=== PATIENT | female | born 1970 | race American Indian/Alaskan Native ===

== ENCOUNTER 2018-12-15 09:21 | Emergency (ER) | payer SELFPAY ==
[2018-12-15 10:15] LABS: Hematocrit 36.4 % (30.3-42.9); Mean Corpuscular HGB Conc 33 % (30-34); Mean Corpuscular Volume 85 fl (79-97); Platelet Count 353 K/mm3 (140-440); Red Blood Count 4.29 M/mm3 (3.65-5.03); Red Cell Distribution Width 14.2 % (13.2-15.2)
--- NOTE | 2018-12-15 10:21 | Cat Scan Report ---
CT HEAD WITHOUT CONTRAST INDICATION: numbness, paresthesias to extremities. TECHNIQUE: All CT scans at this location are performed using CT dose reduction for ALARA by means of automated e xposure control. COMPARISON: None available. FINDINGS: HEMORRHAGE: None. EXTRA-AXIAL SPACES: Normal in size and morphology for the patient's age. VENTRICULAR SYSTEM: Normal in size and morphology for the patient's age. BRAIN PARENCHYMA: No acute findings. MIDLINE SHIFT OR HERNIATION: None. ORBITS: Normal as visualized. SOFT TISSUES OF HEAD: Normal. CALVARIUM: Normal. VISUALIZED PARANASAL SINUSES AND MASTOID AIR CELLS: Clear. ADDITIONAL FINDINGS: None. IMPRESSION: 1. No acute intracranial abnormality. Signer Name: Tex Yusuf MD Signed: 12/15/2018 10:16 AM Workstation Name: [id number]
[2018-12-15 10:26] LABS: BUN/Creatinine Ratio 18; Blood Urea Nitrogen 14 mg/dL (7-17); Calcium 9.2 mg/dL (8.4-10.2); Hemolysis Index 3
--- NOTE | 2018-12-15 10:40 | Emergency Department Report ---
HPI - General Chief Complaint: Neuro Symptoms/Deficit Time Seen by Provider: 12/15/18 09:38 - HPI HPI: 48-year-old -[place] female presents to the emergency department with complaint of what sounds like paresthesias to the bilateral hands and fingers, except for the thumbs, that has been going on for the past 2 weeks. She says that there is "numbness" but says that she does have sensation to this area. She has full range of motion to the hands and upper extremities. Patient says that she sleeps on her stomach and often she will have her arms and hands underneath her. She will sometimes wake up with this sensation to the hands and fingers but it usually goes away. However, over the past 2 weeks, it has not gone away. She denies any headache, vision change, slurred speech or any other neurological deficits. She has a past medical history of asthma. She has not taken anything for her symptoms prior to presentation. ED Past Medical Hx - Past Medical History Hx Asthma: Yes - Surgical History Additional Surgical History: left leg (ortho). x 1. partial hysterectomy - Social History Smoking Status: Never Smoker - Medications Home Medications: Home Medications Medication Instructions Recorded Confirmed Last Taken Type Azithromycin [Zithromax Z-PARKER] 250 mg PO QDAY #6 tablet 03/05/16 Unknown Rx Ibuprofen [Motrin 600 MG tab] 600 mg PO Q8H PRN #30 tablet 03/05/16 Unknown Rx ED Review of Systems ROS: Stated complaint: FINGERS NUMB Other details as noted in HPI Comment: All other systems reviewed and negative Constitutional: denies: chills, fever Eyes: denies: eye pain, vision change ENT: denies: ear pain, throat pain Respiratory: denies: cough, shortness of breath Cardiovascular: denies: chest pain, palpitations Gastrointestinal: denies: abdominal pain, vomiting Genitourinary: denies: dysuria, discharge Musculoskeletal: denies: back pain, joint swelling Skin: denies: rash, lesions Neurological: numbness, paresthesias. denies: headache, weakness Physical Exam - Physical Exam Vital Signs: Vital Signs 12/15/18 12/15/18 09:23 09:57 Temperature 98.8 F 98.7 F Pulse Rate 84 67 Respiratory 19 20 Rate Blood Pressure 210/101 143/74 [Right] O2 Sat by Pulse 99 100 Oximetry Physical Exam: GENERAL: The patient is well-developed well-nourished. HENT: Normocephalic. Atraumatic. Patient has moist mucous membranes. EYES: Extraocular motions are intact. Pupils equal reactive to light bilaterally. NECK: Supple. Trachea is midline. CHEST/LUNGS: Clear to auscultation. There is no respiratory distress noted. HEART/CARDIOVASCULAR: Regular. There is no tachycardia. There is no murmur. ABDOMEN: Abdomen is soft, nontender. Patient has normal bowel sounds. There is no abdominal distention. SKIN: Skin is warm and dry. NEURO: The patient is awake, alert, and oriented. The patient is cooperative. The patient has no focal neurologic deficits. Normal speech. Cranial nerves II through XII grossly intact. No facial asymmetry. MUSCULOSKELETAL: There is no tenderness or deformity. There is no limitation range of motion. There is no evidence of acute injury. Capillary refill less than 2 seconds and radial pulse +2 over 4 to the bilateral upper extremities. ED Course Vital Signs 12/15/18 12/15/18 09:23 09:57 Temperature 98.8 F 98.7 F Pulse Rate 84 67 Respiratory 19 20 Rate Blood Pressure 210/101 143/74 [Right] O2 Sat by Pulse 99 100 Oximetry ED Medical Decision Making - Lab Data Result diagrams: 12/15/18 09:38 12/15/18 09:38 - Radiology Data Radiology results: report reviewed CT HEAD WITHOUT CONTRAST INDICATION: numbness, paresthesias to extremities. TECHNIQUE: All CT scans at this location are performed using CT dose reduction for ALARA by means of automated exposure control. COMPARISON: None available. FINDINGS: HEMORRHAGE: None. EXTRA-AXIAL SPACES: Normal in size and morphology for the patient's age. VENTRICULAR SYSTEM: Normal in size and morphology for the patient's age. BRAIN PARENCHYMA: No acute findings. MIDLINE SHIFT OR HERNIATION: None. ORBITS: Normal as visualized. SOFT TISSUES OF HEAD: Normal. CALVARIUM: Normal. VISUALIZED PARANASAL SINUSES AND MASTOID AIR CELLS: Clear. ADDITIONAL FINDINGS: None. IMPRESSION: 1. No acute intracranial abnormality. - Medical Decision Making This patient presents to the emergency department with a two-week history of what sounds like paresthesias to the bilateral hands and the majority of the fingers. Otherwise she does not have any other focal, motor or sensory deficits and her cranial nerves are intact. CT scan of the head was done without contrast that does not show any bleed, shift, mass, ischemia, or any other acute process. Her labs have been unremarkable including CBC, metabolic panel, troponin and TSH level. She is a 0 on the NIH stroke scale. She appears safe for discharge home at this time. Vital signs have been stable throughout her ED course. The patient was given a referral for primary care. She was also given a referral for an orthopedist secondary to the paresthesias. Her blood pressure came down to a reasonable level without any antihypertensive medication given and I believe the triage blood pressure was an outlier. The patient will return to the emergency department with any worsening of her symptoms or any acute distress. - Differential Diagnosis paresthesias, carpal tunnel, CVA Critical Care Time: No Critical care attestation.: If time is entered above; I have spent that time in minutes in the direct care of this critically ill patient, excluding procedure time. ED Disposition Clinical Impression: Paresthesia of hand, bilateral Disposition: TO HOME OR SELFCARE Is pt being admited?: No Condition: Stable Instructions: Paresthesia (ED) Additional Instructions: I'm giving you a referral for local primary care physicians and clinics. I am also giving you a referral for a local orthopedist, Dr. Shine, to follow up reg arding the paresthesias. Return to the emergency Department with any worsening of your symptoms or any acute distress. Referrals: KIM WANG MD [Staff Physician] - 2-3 Days NEAL SHINE MD [Staff Physician] - 2-3 Days [facility] [Outside] - 2-3 Days Time of Disposition: 11:01
[2018-12-15 10:54] VITALS: BP 148/85
== END 2018-12-15 11:48 | disposition home or self-care (01) ==
LOC: ED 09:21
DX: R20.2 Paresthesia of skin (principal); J45.909 Unspecified asthma, uncomplicated; Z88.0 Allergy status to penicillin; Z90.711 Acquired absence of uterus with remaining cervical stump
CPT/HCPCS: 36415; 70450; 80048; 84443; 84484; 85027; 99284